=== PATIENT | male | born 1985 | race Caucasian/White ===

== ENCOUNTER 2017-02-19 16:43 | Emergency (ER) | payer SELFPAY ==
[~2017-02-19] VITALS: Ht 185.4 cm; Wt 85.6 kg
[~2017-02-19 16:43] MED LIST: CEPH500C3 PO; IBUP800 PO
[2017-02-19 16:50] VITALS: BP 135/70; PULSE 115; RESP 16; TEMP 98.5; O2SAT 98
--- NOTE | 2017-02-19 17:14 | PD ---
HPI Chief Complaint: Complaint Time Seen by Provider: 16:55 Travel History International Travel<30 days: No Contact w/Intl Traveler<30days: [place] Country Traveled to: [place] Traveled to known affect area: No History of Present Illness HPI The patient is a 31-year-old male who presents to the emergency department for inability to urinate. The patient states he has been unable to urinate since last night. Patient complains of pressure located over the pelvic region, feels like a "basketball in my belly ". The patient notes approximately 12-13 hours with inability to urinate. He denies any drooling or overflow incontinence. He denies any actual dysuria or hematuria prior to the onset of his symptoms. The patient does have a history of testicular cancer in his 20s with removal of right testicle and placement of a prosthesis. He also notes a history of prostatitis, but denies any perirectal pain, fever, chills, or sweats. He denies taking any anticholinergic or any muscarinic medications at home. He denies any nausea, vomiting, diarrhea, or constipation. Symptoms are mild to moderate, there are no known alleviating or exacerbating factors. [facility] Past Medical History Diminished Hearing: No Past Surgical History Appendectomy: Yes Social History Alcohol Use: Yes (social) Tobacco Use: Yes (1/2 PPD) Substance Use: No Allergies-Medications (Allergen,Severity, Reaction): Coded Allergies: No Known Allergies (Verified , 02/19/17) Reported Meds & Prescriptions Reported Meds & Active Scripts Active No Active Prescriptions or Reported Medications Review of Systems Except as stated in HPI: all other systems reviewed are Neg General / Constitutional: No: Fever Gastrointestinal: No: Nausea, Vomiting, Diarrhea, Abdominal Pain, Constipation Genitourinary: Positive: Decreased Urinary Output, Pelvic Pain, No: Dysuria Physical Exam Narrative GENERAL: Awake, alert, very pleasant 31-year-old male who appears his stated age and is in no acute respiratory distress. SKIN: Focused skin assessment warm/dry. HEAD: Atraumatic. Normocephalic. EYES: No injection or drainage. ENT: No nasal bleeding or discharge. Mucous membranes pink and moist. NECK: Trachea midline. No JVD. GASTROINTESTINAL: Abdomen soft, mild tenderness of the suprapubic region. Genitourinary: Circumcised phallus. Left testicle palpable. Right testicular prosthesis palpable. No visible blood at the meatus. MUSCULOSKELETAL: No obvious deformities. No clubbing. No cyanosis. No edema. Back: No CVA tenderness. NEUROLOGICAL: Awake and alert. No obvious cranial nerve deficits. Motor grossly within normal limits. Normal speech. PSYCHIATRIC: Appropriate mood and affect; insight and judgment normal. Data Data Last Documented VS Vital Signs Date Time Temp Pulse Resp B/P (MAP) Pulse Ox O2 Delivery O2 Flow Rate FiO2 02/19/17 16:50 98.5 115 16 135/70 (91) 98 Orders Orders Ed Poc Ultrasound (02/19/17 ) Urinalysis - C+S If Indicated (02/19/17 17:07) Urinary Catheter Insert/Apply (02/19/17 17:07) Bag, Leg 32oz Sterile Large Ea (02/19/17 17:07) Cath, Leg Strap Ea (02/19/17 17:07) Labs Laboratory Tests Test 02/19/17 17:17 Urine Collection Type CATH Urine Color YELLOW Urine Turbidity CLEAR Urine pH 6.0 Urine Specific [place] 1.015 Urine Protein NEG mg/dL Urine Glucose (UA) NEG mg/dL Urine Ketones NEG mg/dL Urine Occult Blood TRACE Urine Nitrite NEG Urine Bilirubin NEG Urine Leukocyte Esterase NEG Urine RBC 0-3 /hpf Urine WBC 0-2 /hpf Microscopic Urinalysis Comment CULT NOT INDICATED MDM Medical Decision Making Medical Screen Exam Complete: Yes Emergency Medical Condition: Yes Medical Record Reviewed: Yes Interpretation(s) Laboratory Tests Test 02/19/17 17:17 Urine Collection Type CATH Urine Color YELLOW Urine Turbidity CLEAR Urine pH 6.0 Urine Specific [place] 1.015 Urine Protein NEG mg/dL Urine Glucose (UA) NEG mg/dL Urine Ketones NEG mg/dL Urine Occult Blood TRACE Urine Nitrite NEG Urine Bilirubin NEG Urine Leukocyte Esterase NEG Urine RBC 0-3 /hpf Urine WBC 0-2 /hpf Microscopic Urinalysis Comment CULT NOT INDICATED Differential Diagnosis Differential diagnosis includes urinary retention, obstructive uropathy, UTI, prostatitis, benign prostatic hypertrophy, prostate cancer. Narrative Course A bedside ultrasound was performed with a curvilinear probe which reveals an enlarged bladder, just inferior to the umbilicus. Therefore, Hernandez catheter was placed and UA was sent to lab. UA reveals trace blood, no evidence of infection. The patient's Hernandez catheter was attached to a leg bag. He is advised to follow-up with urology on Tuesday. Return sooner if symptoms worsen or progress. Procedures Procedure Narrative A bedside ultrasound was performed using a curvilinear probe which revealed a large bladder. The patient tolerated the procedure without difficulty and there was no obvious complications. Diagnosis Primary Impression: Urinary retention Referrals: Anurag Tapia MD 2 days Patient Instructions: General Instructions Additional Instructions: Follow-up with urology on Tuesday. Pyridium and Flomax as directed. Return if symptoms worsen or progress. Med/Other Pt SpecificInfo: Prescription(s) given Scripts Tamsulosin (Flomax) 0.4 Mg Cap 0.4 MG PO HS for Manage Prostate Problems for 7 Days, #30 CAP 0 Refills Prov: Camilo Juarez MD 02/19/17 Phenazopyridine (Pyridium) 100 Mg Tab 100 MG PO Q8H Y for DYSURIA for 2 Days, #6 TAB 0 Refills Prov: Camilo Juarez MD 02/19/17 Disposition: 01 DISCHARGE HOME Condition: Stable Camilo Juarez MD Feb 19, 2017 17:14
[2017-02-19 17:41] LABS: BILIRUBIN, URINE NEG (NEG); BLOOD, URINE TRACE (NEG); GLUCOSE,URINE NEG (NEG); KETONE, URINE NEG (NEG); NITRITE,URINE NEG (NEG); URINE LEUKOCYTE ESTERASE NEG (NEG)
[2017-02-19 17:42] LABS: URINE COLOR YELLOW (YELLW/STRAW)
[2017-02-19 17:45] LABS: RBC, URINE 0-3 /hpf (0-3); WBC, URINE 0-2 /hpf (0-5)
[2017-02-19] MEDS ORDERED: PHEN0.4T PO (17:56)
[2017-02-19] MEDS ORDERED: TAMS5CAP PO (17:56)
== END 2017-02-19 18:30 | disposition home or self-care (01) ==
LOC: PHED 16:43
DX: R33.9 Retention of urine, unspecified (principal); Z85.47 Personal history of malignant neoplasm of testis; Z72.0 Tobacco use
CPT/HCPCS: 51702; 81001